=== PATIENT | male | born 1975 | race Caucasian/White ===

== ENCOUNTER 2017-08-08 20:52 | Emergency (ER) | payer BC ==
--- NOTE | 2017-08-08 21:30 | EDM.PDOC ---
ED HPI GENERAL MEDICAL PROBLEM - General Chief Complaint: General Stated Complaint: COLD Time Seen by Provider: 08/08/17 21:15 Source of Information: Reports: Patient, RN History Limitations: Reports: No Limitations - History of Present Illness INITIAL COMMENTS - FREE TEXT/NARRATIVE: 42 yo male presents with a 2 week hx of body aches and runny nose. Has not been seen for this before today. Taking Mucinex. Onset: Gradual Onset Date: 07/25/17 Duration: Week(s): (2), Constant Location: Reports: Face (nose), Chest Severity: Mild Improves with: Reports: None Worsens with: Reports: None Context: Reports: Sick Contact Associated Symptoms: Reports: Cough (rarely productive), Fever/Chills, Malaise, Shortness of Breath (mild at times). Denies: Rash Treatments [employer]: Reports: Other (see below) (Mucinex) chest Pain Score (Numeric/FACES): 5 - Related Data Allergies Allergy/AdvReac Type Severity Reaction Status Date / Time bee venom protein (honey bee) Allergy Anaphylactic Verified 08/08/17 21:12 Shock Home Meds: Home Meds NK [No Known Home Meds] 08/08/17 [History] Past Medical History Neurological History: Reports: Concussion Endocrine/Metabolic History: Reports: Obesity/BMI 30+ - Past Surgical History HEENT Surgical History: Reports: Tonsillectomy GI Surgical History: Reports: Appendectomy Musculoskeletal Surgical History: Reports: Other (See Below) Other Musculoskeletal Surgeries/Procedures:: patella tendon Social & Family History - Tobacco Use Smoking Status *Q: Never Smoker Second Hand Smoke Exposure: No - Caffeine Use Caffeine Use: Reports: Coffee - Recreational Drug Use Recreational Drug Use: No ED ROS GENERAL - Review of Systems Review Of Systems: See Below Constitutional: Reports: Fever, Chills, Malaise HEENT: Reports: Rhinitis. Denies: Ear Pain, Throat Pain Respiratory: Reports: Shortness of Breath (mild at times only.), Cough, Sputum ( rare). Denies: Pleuritic Chest Pain, Hemoptysis Cardiovascular: Reports: No Symptoms GI/Abdominal: Reports: No Symptoms : Reports: No Symptoms Skin: Reports: No Symptoms Neurological: Reports: No Symptoms ED EXAM, GENERAL - Physical Exam Exam: See Below Exam Limited By: No Limitations General Appearance: Alert, WD/WN, No Apparent Distress Eye Exam: Bilateral Eye: Normal Inspection Ears: Normal External Exam, Normal Canal, Hearing Grossly Normal, Normal TMs Ear Exam: Bilateral Ear: Auricle Normal, Canal Normal, TM normal Nose: Normal Inspection, Clear Rhinorrhea Throat/Mouth: Normal Inspection, Normal Lips, Normal Oropharynx, Normal Voice, No Airway Compromise Head: Atraumatic, Normocephalic Neck: Normal Inspection, Supple, Non-Tender Respiratory/Chest: No Respiratory Distress, Lungs Clear, Normal Breath Sounds, No Accessory Muscle Use Cardiovascular: Regular Rate, Rhythm, No Edema GI/Abdominal: Normal Bowel Sounds, Soft, Non-Tender, No Distention Back Exam: Normal Inspection. No: CVA Tenderness (R) Extremities: Normal Inspection, Normal Range of Motion, Non-Tender, No Pedal Edema Neurological: Alert, Oriented, CN II-XII Intact, Normal Cognition, No Motor/ Sensory Deficits Psychiatric: Normal Affect, Normal Mood Skin Exam: Warm, Dry, Intact, Normal Color, No Rash Lymphatic: No Adenopathy Course - Vital Signs Last Recorded V/S: Last Vital Signs Temp 38.1 C 08/08/17 21:08 Pulse 105 H 08/08/17 21:08 Resp 18 08/08/17 21:08 BP 136/95 H 08/08/17 21:08 Pulse Ox 92 L 08/08/17 21:08 - Orders/Labs/Meds Labs: Laboratory Tests 08/08/17 Range/Units 21:23 WBC 5.7 (4.5-11.0) K/uL RBC 5.02 (4.30-5.90) M/uL Hgb 13.9 (12.0-15.0) g/dL Hct 42.9 (40.0-54.0) % MCV 86 (80-98) fL MCH 28 (27-31) pg MCHC 32 (32-36) % Plt Count 216 (150-400) K/uL Departure - Departure Time of Disposition: 21:40 Disposition: Home, Self-Care 01 Condition: Good Clinical Impression: Viral respiratory infection - Discharge Information Referrals: PCP,None [Primary Care Provider] - Forms: ED Department Discharge
== END 2017-08-08 21:53 | disposition home or self-care (01) ==
LOC: JP.ED 20:52
DX: J98.8 Other specified respiratory disorders (principal); B97.89 Other viral agents as the cause of diseases classified elsewhere; E66.9 Obesity, unspecified; Z91.030 Bee allergy status
CPT/HCPCS: 36415; 85027; 99284